=== PATIENT | male | born 1945 | race Caucasian/White ===

== ENCOUNTER → 2019-07-18 | Outpatient (CLI) | payer OTHER | END | disposition home or self-care (01) | LOC: SHCH 08:40 | PROVIDERS: ATTEND Internal Medicine Cardiovascular Disease | DX: I51.7 Cardiomegaly (principal); I34.0 Nonrheumatic mitral (valve) insufficiency; E66.9 Obesity, unspecified; I50.20 Unspecified systolic (congestive) heart failure | CPT/HCPCS: 93306 ==

== ENCOUNTER → 2019-08-23 | Outpatient (CLI) | payer OTHER ==
[~2019-08-23] VITALS: Ht 175.3 cm; Wt 149.2 kg
[~2019-08-23] MED LIST: REGADENOSON 0.4 MG/5 ML PF SYG IVP SCH
== END | disposition home or self-care (01) ==
LOC: SHCH 08:00
PROVIDERS: ATTEND Internal Medicine Cardiovascular Disease
DX: I21.19 ST elevation (STEMI) myocardial infarction involving other coronary artery of inferior wall (principal); I25.10 Atherosclerotic heart disease of native coronary artery without angina pectoris
CPT/HCPCS: 78452; 93017; 96374; A9500 ×2; J2785

== ENCOUNTER → 2020-02-19 | Outpatient (CLI) | payer OTHER ==
[~2020-02-19] VITALS: Ht 175.3 cm; Wt 149.2 kg
[~2020-02-19] MED LIST changes: +ACET-66 PO; +ADV500 IH; +AEC81 PO; +ALBU90AE2 IH; +BUSP15TA3 PO; +CIPOTIC OTIC; +CITA-107 PO; +CLOT15CR23 TP; +COLE625 PO; +DOXY100T2 PO; +FLUT16H NASAL; +FOLI0.4T2 PO; +FURO80TA3 PO; +ISOS60TA4 PO; +LACT10SO62 PO; +LEVO50TA11 PO; +LORA-192 PO; +LOSA25TA41 PO; +METO-409 PO; +NITR0.4T SL; +RANO10003 PO; -REGADENOSON 0.4 MG/5 ML PF SYG IVP SCH; +SIMV-46 PO; +SODIUM CHLORIDE 0.9% 500ML 500 ML IV SCH; +SPIR25TA6 PO; +TAMS-1 PO; +TRAZ-187 PO; +VENL100T4 PO
[2020-02-19 09:48] LABS: EOSINOPHILS % (AUTO) 0.5 % (0.0-8.0); HEMATOCRIT 30.8 % (42-54); LYMPHOCYTES % (AUTO) 22.2 % (21.0-51.0); MEAN CORPUSCULAR HEMOGLOBIN 27.4 pg (27.0-33.0); MEAN CORPUSCULAR HGB CONC 31.5 g/dL (32.0-36.0); MONOCYTES % (AUTO) 11.6 % (3.0-13.0); NEUTROPHILS % (AUTO) 65.5 % (40.0-77.0); PLATELET COUNT (AUTO) 98 K/uL (130-400); RED BLOOD CELL COUNT(AUTO) 3.54 MIL/uL (4.50-6.20); RED CELL DISTRIBUTION WIDTH 14.2 % (11.0-15.5); WHITE BLOOD COUNT (AUTO) 4.1 K/uL (4.8-10.8)
[2020-02-19 09:52] LABS: APPEARANCE,URINE Cloudy (CLEAR); BILIRUBIN,URINE Negative (NEGATIVE); COLOR,URINE Yellow (YELLOW); GLUCOSE, URINE (UA) Negative (NEGATIVE); KETONES,URINE Negative (NEGATIVE); LEUKOCYTE ESTERASE ,URINE Large (NEGATIVE); NITRATE,URINE Negative (NEGATIVE); OCCULT BLOOD,URINE Negative (NEGATIVE); PROTEIN,URINE Trace mg/dL (NEGATIVE)
[2020-02-19 09:54] LABS: CREATININE 1.1 mg/dL (0.5-1.5); POTASSIUM 4.2 mmol/L (3.5-5.1)
[2020-02-19 09:57] LABS: INR 1.08 (0.85-1.15); PARTIAL THROMBOPLASTIN TIME 28.4 SEC (26.3-35.5); PROTHROMBIN TIME 11.6 SEC (9.6-11.6)
[2020-02-19 10:21] LABS: BACTERIA,URINE None Seen /HPF (None Seen); RBC,URINE 0-1 /HPF (0-1)
[2020-02-19 10:22] LABS: SQUAMOUS EPITHELIAL CELL,UR 0-2 /HPF (0-2)
[2020-02-19 13:22] VITALS: BP 137/57
--- NOTE | 2020-02-20 14:29 | NUR ---
RE: ABNORMAL LABS REPORTED URINALYSIS RESULTS TO [facility] SPANGLER. ALSO REPORTED WBC 4.1, HGB 9.7, HCT 30.8, PLT 98. NO NEW ORDERS. MAY PROCEED WITH PROCEDURE SCHEDULED.
--- NOTE | 2020-02-21 06:08 | NUR ---
PT CALLED TO CANCEL HIS PROCEDURE. INSTRUCTED TO CALL [facility] TO LET THEM KNOW. I WILL FOLLOW UP WITH DR PALOMARES AND HIS CLINIC
--- NOTE | 2020-02-21 06:20 | NUR ---
I CALLED PT TO VERIFY HIS CANCELLATION- HE CANCELLED DUE TO "LACK OF SLEEP". I INSTRUCTED HIM TO CALL THE HEART CLINIC TO RESCHEDULE. THANK YOU
== END ==
LOC: LAB 05:00 → EDSTATUS 09:00
PROVIDERS: ATTEND Internal Medicine Cardiovascular Disease
DX: Z01.818 Encounter for other preprocedural examination (principal); I25.119 Atherosclerotic heart disease of native coronary artery with unspecified angina pectoris; E78.5 Hyperlipidemia, unspecified; J44.9 Chronic obstructive pulmonary disease, unspecified; K21.9 Gastro-esophageal reflux disease without esophagitis; N18.2 Chronic kidney disease, stage 2 (mild); I12.9 Hypertensive chronic kidney disease with stage 1 through stage 4 chronic kidney disease, or unspecified chronic kidney disease; Z79.899 Other long term (current) drug therapy; Z98.890 Other specified postprocedural states; Z79.01 Long term (current) use of anticoagulants
CPT/HCPCS: 36415; 71045; 80048; 81001; 85025; 85610; 85730; 87088; 93005

== ENCOUNTER 2020-04-09 16:21 | Inpatient (IN) | payer OTHER ==
[~2020-04-09] VITALS: Ht 175.3 cm; Wt 142.8 kg
[~2020-04-09 16:21] MED LIST changes: -ACET-66 PO; -ALBU90AE2 IH; -BUSP15TA3 PO; -CIPOTIC OTIC; -FOLI0.4T2 PO; -FURO80TA3 PO; -SODIUM CHLORIDE 0.9% 500ML 500 ML IV SCH
[2020-04-09 17:11] LABS: HEMATOCRIT 28.4 % (42-54); LYMPHOCYTES % (AUTO) 17.1 % (21.0-51.0); MEAN CORPUSCULAR HEMOGLOBIN 27.7 pg (27.0-33.0); MEAN CORPUSCULAR VOLUME 86.3 fL (79-99); MONOCYTES % (AUTO) 10.4 % (3.0-13.0); NEUTROPHILS % (AUTO) 72.3 % (40.0-77.0); PLATELET COUNT (AUTO) 103 K/uL (130-400); RED BLOOD CELL COUNT(AUTO) 3.29 MIL/uL (4.50-6.20); RED CELL DISTRIBUTION WIDTH 13.9 % (11.0-15.5)
[2020-04-09 17:25] LABS: INR 1.08 (0.85-1.15); PARTIAL THROMBOPLASTIN TIME 28.9 SEC (26.3-35.5); PROTHROMBIN TIME 11.6 SEC (9.6-11.6)
[2020-04-09 17:27] LABS: CARBON DIOXIDE 29 mmol/L (21-32); CHLORIDE 96 mmol/L (101-111); CREATININE 1.2 mg/dL (0.5-1.5); GLOMERULAR FILTR. RATE CALC 63 mL/min (>60); GLUCOSE,RANDOM 93 mg/dL (70-105); POTASSIUM 4.7 mmol/L (3.5-5.1); SODIUM SERUM 132 mmol/L (136-145); UREA NITROGEN, BLOOD 23 mg/dL (7-18)
[2020-04-09 17:52] LABS: ALANINE AMINOTRANSFERASE 25 U/L (12-78); ALBUMIN 3.4 g/dL (3.5-5.0); ASPARTATE AMINOTRANSFERASE 19 U/L (10-37); BILIRUBIN,TOTAL 0.4 mg/dL (0.2-1.0); CREATINE KINASE, TOTAL 56 U/L (21-232); MYOGLOBIN 60 ng/mL (10-92); TOTAL PROTEIN, SERUM 7.2 g/dL (6.0-8.3); TROPONIN I < 0.04 ng/mL (0.00-0.06)
[2020-04-09] MEDS ORDERED: CEFTRIAXONE SODIUM 2 GM VIAL ONE (18:19)
[2020-04-09] MEDS ORDERED: SODIUM CHLORIDE 0.9% 500ML 500 ML IV ONE (19:24)
[2020-04-09] MEDS ORDERED: SODIUM CHLORIDE 0.9% 100 ML IV ONE (20:24)
[2020-04-10 04:07] LABS: EOSINOPHILS % (AUTO) 0.2 % (0.0-8.0); HEMATOCRIT 29.8 % (42-54); LYMPHOCYTES % (AUTO) 17.6 % (21.0-51.0); MEAN CORPUSCULAR HEMOGLOBIN 28.1 pg (27.0-33.0); MEAN CORPUSCULAR HGB CONC 32.2 g/dL (32.0-36.0); MEAN CORPUSCULAR VOLUME 87.1 fL (79-99); NEUTROPHILS % (AUTO) 72.7 % (40.0-77.0); PLATELET COUNT (AUTO) 100 K/uL (130-400); RED BLOOD CELL COUNT(AUTO) 3.42 MIL/uL (4.50-6.20); RED CELL DISTRIBUTION WIDTH 13.9 % (11.0-15.5); WHITE BLOOD COUNT (AUTO) 4.2 K/uL (4.8-10.8)
[2020-04-10] MEDS: OCTREOTIDE ACETATE 500 MCG in SODIUM CHLORIDE 0.9% 97.5 ML IV SCH ×2 (04:15→14:15)
[2020-04-10] MEDS: PANTOPRAZOLE SODIUM 80 MG in NS 100ML IVP SCH ×2 (04:15→16:31)
[2020-04-10 04:32] LABS: CREATININE 1.3 mg/dL (0.5-1.5)
[2020-04-10 04:36] LABS: ALBUMIN 3.4 g/dL (3.5-5.0); BILIRUBIN,TOTAL 0.4 mg/dL (0.2-1.0); TOTAL PROTEIN, SERUM 7.2 g/dL (6.0-8.3)
[2020-04-10] MEDS ORDERED: GUAIFENESIN-DM 200/20 MG 10 ML ONE (04:54)
[2020-04-10] MEDS ORDERED: TRAMADOL HCL 50 MG TABLET ONE (04:55)
[2020-04-10] MEDS ORDERED: BENZOCAINE/MENTH/CETYLPYRD CL 1 EACH LOZENGE MM ONE (04:55)
[2020-04-10] MEDS ORDERED: GUAIFENESIN-CODEINE 5 ML SYRUP PO PRN (05:30)
[2020-04-10] MEDS: LEVOTHYROXINE 100 MCG TABLET PO SCH (06:30)
[2020-04-10] MEDS: ISOSORBIDE MONO 30MG TAB SR PO SCH (09:00)
[2020-04-10] MEDS: BUSPIRONE HCL 5 MG TABLET PO SCH ×2 (09:00→20:37)
[2020-04-10] MEDS: LOSARTAN 50 MG TABLET PO SCH (09:00)
[2020-04-10] MEDS: RANOLAZINE 500 MG TAB.SR.12H PO SCH ×2 (09:00→20:37)
[2020-04-10] MEDS: FOLIC ACID 1 MG TABLET PO SCH (09:00)
[2020-04-10] MEDS: ALBUTEROL INHALER 90MCG/INH IH SCH ×4 (10:00→22:09)
[2020-04-10] MEDS ORDERED: ISOSORBIDE MONO 30MG TAB SR PO ONE (10:01)
[2020-04-10 11:31] LABS: HEMATOCRIT 29.9 % (42-54)
--- NOTE | 2020-04-10 15:25 | NUR ---
ER ADMIT PATIENT RECEIVED FROM ER VIA STRETCHER IN STABLE CONDITION. HE HAS BEEN ORIENTED TO ROOM AND USE OF CALL LIGHT. BED IS IN LOWEST POSITION AND LOCKED. WILL CONTINUE TO MONITOR.
[2020-04-10 15:54] VITALS: BP 130/70
--- NOTE | 2020-04-10 16:00 | NUR ---
Patient's physical assessment completed. No Shortness of breath observed, however patient is on oxygen at 2 LPM via nasal cannula. Patient is a COPD patient and is always on oxygen. Lungs sounds diminished to bilateral lower lobes. Stated he has been having sore throat but he believes is from the chronic use of oxygen. Reported that he uses the CPAP at all times when he needs it. Currently he is on Sandostatin drip and Protonix drip for diagnosis of GI bleed via 20g saline lock to left antecubital area. Alexandr LEVINE is patient's primary care nurse
[2020-04-10] MEDS ORDERED: FURO80TA3 PO (16:17)
[2020-04-10] MEDS ORDERED: FOLI0.4T2 PO (16:25)
[2020-04-10] MEDS ORDERED: ALBU90AE2 IH (16:25)
[2020-04-10] MEDS ORDERED: BUSP15TA3 PO (16:25)
[2020-04-10] MEDS ORDERED: ACET-66 PO (16:29)
[2020-04-10 18:14] LABS: HEMATOCRIT 28.9 % (42-54)
[2020-04-10 19:00] VITALS: BP 115/59
[2020-04-10] MEDS: METRONIDAZOLE 500MG/100ML BAG 100 ML IV SCH (22:09)
[2020-04-10 23:00] VITALS: BP 127/54
[2020-04-11] MEDS: TRAMADOL HCL 50 MG TABLET PO PRN ×2 (00:34→05:38)
[2020-04-11] MEDS: OCTREOTIDE ACETATE 500 MCG in SODIUM CHLORIDE 0.9% 97.5 ML IV SCH ×2 (00:35→12:48)
[2020-04-11] MEDS: PANTOPRAZOLE SODIUM 80 MG in NS 100ML IVP SCH ×2 (00:35→12:48)
[2020-04-11] MEDS: ALBUTEROL INHALER 90MCG/INH IH SCH ×5 (02:00→21:19)
[2020-04-11 03:00] VITALS: BP 139/80
[2020-04-11] MEDS: BENZOCAINE/MENTH/CETYLPYRD CL 1 EACH LOZENGE MM PRN (03:56)
[2020-04-11] MEDS: METRONIDAZOLE 500MG/100ML BAG 100 ML IV SCH ×3 (05:09→21:18)
[2020-04-11] MEDS: LEVOTHYROXINE 100 MCG TABLET PO SCH (05:51)
[2020-04-11 08:30] VITALS: BP 132/55
[2020-04-11] MEDS: FOLIC ACID 1 MG TABLET PO SCH (09:51)
[2020-04-11] MEDS: ISOSORBIDE MONO 30MG TAB SR PO SCH (09:51)
[2020-04-11] MEDS: LOSARTAN 50 MG TABLET PO SCH (09:52)
[2020-04-11] MEDS: RANOLAZINE 500 MG TAB.SR.12H PO SCH ×2 (09:52→21:19)
[2020-04-11] MEDS: BUSPIRONE HCL 5 MG TABLET PO SCH ×2 (09:54→21:19)
[2020-04-11] MEDS ORDERED: COMPOUND IV REFRIGERATED 1 EACH IVSOLN MISC PRN (12:15)
--- NOTE | 2020-04-11 15:24 | NUR ---
DC PLAN CALLED PATIENT ROOM NO ANSWER. FACE SHEET IS A FRIEND NOT DIRECT FAMILY. JADON WILL CONTINUE TO FOLLOW. Addendum: 04/11/20 at 1525 by EVIN SEPULVEDA RN CM Amended: Links added.
[2020-04-11 16:00] VITALS: BP 119/62
[2020-04-11] MEDS: FUROSEMIDE 80 MG TABLET PO SCH (17:01)
[2020-04-11] MEDS ORDERED: NON-FORMULARY MEDICATION 1 EACH (Buspirone HCl 15 MG) PO SCH (21:00)
[2020-04-11] MEDS ORDERED: NON-FORMULARY MEDICATION 1 EACH (Ranolazine (Ranexa) 1,000 MG) PO SCH (21:00)
[2020-04-11] MEDS ORDERED: VENLAFAXINE HCL 100 MG PO SCH (21:00)
[2020-04-11] MEDS: VENLAFAXINE HCL 50 MG TABLET PO SCH (21:18)
[2020-04-11] MEDS: COLESEVELAM HCL 625 MG TAB PO SCH (21:18)
[2020-04-11] MEDS: TRAZODONE HCL 100 MG TABLET PO SCH (21:18)
[2020-04-11] MEDS: PANTOPRAZOLE SODIUM 40 MG TABLET.DR PO SCH (21:19)
[2020-04-11] MEDS: CLOTRIMAZOLE 30 GM CREAM.GM. TP SCH (21:19)
[2020-04-11 21:46] VITALS: BP 128/60
[2020-04-12 00:28] VITALS: BP 151/69
[2020-04-12] MEDS: ALBUTEROL INHALER 90MCG/INH IH SCH ×7 (01:22→22:50)
[2020-04-12 04:38] VITALS: BP 114/56
[2020-04-12] MEDS: LEVOTHYROXINE 100 MCG TABLET PO SCH (06:13)
[2020-04-12] MEDS: METRONIDAZOLE 500MG/100ML BAG 100 ML IV SCH ×3 (06:13→21:34)
[2020-04-12 06:27] LABS: HEMATOCRIT 27.9 % (42-54); MEAN CORPUSCULAR HEMOGLOBIN 27.9 pg (27.0-33.0); MEAN CORPUSCULAR HGB CONC 31.9 g/dL (32.0-36.0); MEAN CORPUSCULAR VOLUME 87.5 fL (79-99); RED BLOOD CELL COUNT(AUTO) 3.19 MIL/uL (4.50-6.20); WHITE BLOOD COUNT (AUTO) 4.4 K/uL (4.8-10.8)
[2020-04-12 06:59] LABS: CREATININE 1.1 mg/dL (0.5-1.5); POTASSIUM 4.4 mmol/L (3.5-5.1)
[2020-04-12 08:00] VITALS: BP 114/51
[2020-04-12] MEDS ORDERED: NON-FORMULARY MEDICATION 1 EACH (Simvastatin 40 MG) PO SCH (09:00)
[2020-04-12] MEDS ORDERED: NON-FORMULARY MEDICATION 1 EACH (Folic Acid 1 MG) PO SCH (09:00)
[2020-04-12] MEDS ORDERED: NON-FORMULARY MEDICATION 1 EACH (Metoprolol Succinate 100 MG) PO SCH (09:00)
[2020-04-12] MEDS ORDERED: NON-FORMULARY MEDICATION 1 EACH (Losartan Potassium 25 MG) PO SCH (09:00)
[2020-04-12] MEDS: RANOLAZINE 500 MG TAB.SR.12H PO SCH ×2 (10:04→21:31)
[2020-04-12] MEDS: ISOSORBIDE MONO 30MG TAB SR PO SCH (10:05)
[2020-04-12] MEDS: METOPROLOL SUCCINATE 50 MG TAB.SR.24H PO SCH (10:05)
[2020-04-12] MEDS: LOSARTAN 50 MG TABLET PO SCH (10:05)
[2020-04-12] MEDS: FOLIC ACID 1 MG TABLET PO SCH (10:05)
[2020-04-12] MEDS: PANTOPRAZOLE SODIUM 40 MG TABLET.DR PO SCH ×2 (10:05→21:32)
[2020-04-12] MEDS: BUSPIRONE HCL 5 MG TABLET PO SCH ×2 (10:05→21:31)
[2020-04-12] MEDS: ASPIRIN 81 MG EC TAB PO SCH (10:05)
[2020-04-12] MEDS: FUROSEMIDE 80 MG TABLET PO SCH ×2 (10:05→17:36)
[2020-04-12] MEDS: SPIRONOLACTONE 25 MG TAB PO SCH (10:05)
[2020-04-12] MEDS: SIMVASTATIN 20 MG TABLET PO SCH (10:06)
[2020-04-12] MEDS: COLESEVELAM HCL 625 MG TAB PO SCH ×2 (10:06→21:31)
[2020-04-12] MEDS: VENLAFAXINE HCL 50 MG TABLET PO SCH ×2 (10:06→21:31)
[2020-04-12] MEDS: CLOTRIMAZOLE 30 GM CREAM.GM. TP SCH ×2 (10:06→21:32)
[2020-04-12 11:21] VITALS: BP 103/44
[2020-04-12] MEDS ORDERED: LACTULOSE 20 GM/30 ML UDCUP PO PRN (15:30)
[2020-04-12 15:58] VITALS: BP 98/44
[2020-04-12 21:14] VITALS: BP 102/45
[2020-04-12] MEDS: TRAZODONE HCL 100 MG TABLET PO SCH (21:31)
[2020-04-12] MEDS: TRAMADOL HCL 50 MG TABLET PO PRN (21:32)
[2020-04-13 00:17] VITALS: BP 148/47
[2020-04-13 04:04] VITALS: BP 109/62
[2020-04-13] MEDS: ALBUTEROL INHALER 90MCG/INH IH SCH ×5 (05:48→20:54)
[2020-04-13] MEDS: METRONIDAZOLE 500MG/100ML BAG 100 ML IV SCH ×3 (05:48→20:54)
[2020-04-13] MEDS: LEVOTHYROXINE 100 MCG TABLET PO SCH (05:48)
[2020-04-13 06:18] LABS: HEMATOCRIT 28.4 % (42-54); LYMPHOCYTES % (AUTO) 18.4 % (21.0-51.0); MEAN CORPUSCULAR HEMOGLOBIN 27.3 pg (27.0-33.0); MEAN CORPUSCULAR VOLUME 85.3 fL (79-99); MONOCYTES % (AUTO) 12.4 % (3.0-13.0); NEUTROPHILS % (AUTO) 68.8 % (40.0-77.0); PLATELET COUNT (AUTO) 114 K/uL (130-400); RED BLOOD CELL COUNT(AUTO) 3.33 MIL/uL (4.50-6.20); RED CELL DISTRIBUTION WIDTH 13.7 % (11.0-15.5); WHITE BLOOD COUNT (AUTO) 5.5 K/uL (4.8-10.8)
[2020-04-13 06:29] LABS: B-TYPE NATRIURETIC PEPTIDE 134 pg/mL (0-100)
[2020-04-13 06:49] LABS: CARBON DIOXIDE 32 mmol/L (21-32); CHLORIDE 101 mmol/L (101-111); CREATININE 1.2 mg/dL (0.5-1.5); GLOMERULAR FILTR. RATE CALC 63 mL/min (>60); GLUCOSE,RANDOM 95 mg/dL (70-105); POTASSIUM 4.2 mmol/L (3.5-5.1); SODIUM SERUM 140 mmol/L (136-145); UREA NITROGEN, BLOOD 21 mg/dL (7-18)
[2020-04-13 08:00] VITALS: BP 153/63
[2020-04-13] MEDS: METOPROLOL SUCCINATE 50 MG TAB.SR.24H PO SCH (09:00)
[2020-04-13] MEDS: PANTOPRAZOLE SODIUM 40 MG TABLET.DR PO SCH ×2 (09:03→20:54)
[2020-04-13] MEDS: ISOSORBIDE MONO 30MG TAB SR PO SCH (09:03)
[2020-04-13] MEDS: COLESEVELAM HCL 625 MG TAB PO SCH ×2 (09:04→20:54)
[2020-04-13] MEDS: FOLIC ACID 1 MG TABLET PO SCH (09:04)
[2020-04-13] MEDS: BUSPIRONE HCL 5 MG TABLET PO SCH ×2 (09:04→20:54)
[2020-04-13] MEDS: PREDNISONE 20 MG TABLET PO SCH (09:04)
[2020-04-13] MEDS: ASPIRIN 81 MG EC TAB PO SCH (09:05)
[2020-04-13] MEDS: LOSARTAN 50 MG TABLET PO SCH (09:05)
[2020-04-13] MEDS: FUROSEMIDE 80 MG TABLET PO SCH ×2 (09:05→16:35)
[2020-04-13] MEDS: CLOTRIMAZOLE 30 GM CREAM.GM. TP SCH ×2 (09:06→20:54)
[2020-04-13] MEDS: RANOLAZINE 500 MG TAB.SR.12H PO SCH ×2 (09:08→20:54)
[2020-04-13] MEDS: VENLAFAXINE HCL 50 MG TABLET PO SCH ×2 (09:08→20:53)
[2020-04-13] MEDS: SIMVASTATIN 20 MG TABLET PO SCH (09:08)
[2020-04-13] MEDS: SPIRONOLACTONE 25 MG TAB PO SCH (09:09)
[2020-04-13 12:00] VITALS: BP 112/66
--- NOTE | 2020-04-13 12:25 | NUR ---
INITIAL SW spoke to patient's provider/friend, Erlinda Polanco, [phone]. Patient lives alone. He has no home health but does have PHC with [facility] 49 hours a week. DME: BPM, w/c, O2 concentrator/portable, CPAP and nebulizer. Patient needs help with ADL's and does not drive. PCP is Dr. Kelsey Schaffer. Pharmacy is [facility] located on [address]. DCP is home. Provider/friend, Erlinda Polanco, informed SW that PT at home with home health would be more beneficial for patient. MD will be notified. Addendum: 04/13/20 at 1228 by LIO WALDROP Amended: Links added.
[2020-04-13 16:00] VITALS: BP 128/66
[2020-04-13] MEDS ORDERED: MAGNESIUM 2GM PREMIX 50ML 50 ML IV SCH (17:00)
[2020-04-13 20:00] VITALS: BP 137/60
[2020-04-13] MEDS: TRAZODONE HCL 100 MG TABLET PO SCH (20:54)
[2020-04-13] MEDS: BENZOCAINE/MENTH/CETYLPYRD CL 1 EACH LOZENGE MM PRN (21:45)
[2020-04-13] MEDS: TRAMADOL HCL 50 MG TABLET PO PRN (21:46)
[2020-04-14] VITALS: BP 129/53
[2020-04-14] MEDS: ALBUTEROL INHALER 90MCG/INH IH SCH ×6 (01:43→22:00)
[2020-04-14 04:10] VITALS: BP 126/52
[2020-04-14] MEDS: LEVOTHYROXINE 100 MCG TABLET PO SCH (05:14)
[2020-04-14] MEDS: METRONIDAZOLE 500MG/100ML BAG 100 ML IV SCH (05:14)
[2020-04-14 06:22] LABS: CREATININE 1.1 mg/dL (0.5-1.5); MAGNESIUM 1.9 mg/dL (1.80-2.40)
[2020-04-14 07:57] VITALS: BP 120/54
[2020-04-14] MEDS: COLESEVELAM HCL 625 MG TAB PO SCH ×2 (08:51→21:48)
[2020-04-14] MEDS: LOSARTAN 50 MG TABLET PO SCH (08:51)
[2020-04-14] MEDS: FUROSEMIDE 80 MG TABLET PO SCH ×2 (08:51→16:31)
[2020-04-14] MEDS: FOLIC ACID 1 MG TABLET PO SCH (08:51)
[2020-04-14] MEDS: VENLAFAXINE HCL 50 MG TABLET PO SCH ×2 (08:51→21:49)
[2020-04-14] MEDS: ASPIRIN 81 MG EC TAB PO SCH (08:52)
[2020-04-14] MEDS: SPIRONOLACTONE 25 MG TAB PO SCH (08:52)
[2020-04-14] MEDS: RANOLAZINE 500 MG TAB.SR.12H PO SCH ×2 (08:52→21:49)
[2020-04-14] MEDS: SIMVASTATIN 20 MG TABLET PO SCH (08:52)
[2020-04-14] MEDS: PANTOPRAZOLE SODIUM 40 MG TABLET.DR PO SCH ×2 (08:52→21:49)
[2020-04-14] MEDS: METOPROLOL SUCCINATE 50 MG TAB.SR.24H PO SCH (08:52)
[2020-04-14] MEDS: BUSPIRONE HCL 5 MG TABLET PO SCH ×2 (08:52→21:49)
[2020-04-14] MEDS: ISOSORBIDE MONO 30MG TAB SR PO SCH (08:53)
[2020-04-14] MEDS: PREDNISONE 20 MG TABLET PO SCH (08:54)
[2020-04-14] MEDS: CLOTRIMAZOLE 30 GM CREAM.GM. TP SCH ×2 (09:06→21:00)
[2020-04-14 11:33] VITALS: BP 116/53
--- NOTE | 2020-04-14 14:00 | NUR ---
transfer REPORT GIVEN TO TITO, 3RD FLOOR NURSE, AND PATIENT TRANSFERRED TO ROOM 332. NO COMPLAINTS NOTED FROM PATIENT.
--- NOTE | 2020-04-14 14:08 | NUR ---
TRANSFER FROM 4TH PATIENT RECEIVED FROM 4TH FLOOR VIA HOSPITAL BED IN STABLE CONDITION. HE HAS BEEN ORIENTED TO ROOM AND USE OF CALL LIGHT. BED IS IN LOWEST POSITION AND LOCKED. WILL CONTINUE TO MONITOR.
[2020-04-14 16:38] VITALS: BP 146/72
[2020-04-14] MEDS: CIPROFLOXACIN HCL 0.2%/HYDROCORT 1% 10 ML OTIC SUSP OTIC SCH ×2 (18:12→21:50)
[2020-04-14 20:05] VITALS: BP 118/66
[2020-04-14] MEDS: TRAZODONE HCL 100 MG TABLET PO SCH (21:49)
[2020-04-14] MEDS: DOCUSATE SODIUM 100 MG CAP PO SCH (21:49)
[2020-04-15 00:06] VITALS: BP 135/53
[2020-04-15] MEDS: TRAMADOL HCL 50 MG TABLET PO PRN (00:50)
[2020-04-15] MEDS: ALBUTEROL INHALER 90MCG/INH IH SCH ×4 (02:23→13:14)
[2020-04-15 04:01] VITALS: BP 114/48
[2020-04-15 05:09] LABS: BASOPHILS % (AUTO) 0.2 % (0.0-5.0); EOSINOPHILS % (AUTO) 0.2 % (0.0-8.0); HEMATOCRIT 28.6 % (42-54); LYMPHOCYTES % (AUTO) 13.4 % (21.0-51.0); MEAN CORPUSCULAR HEMOGLOBIN 27.8 pg (27.0-33.0); MEAN CORPUSCULAR HGB CONC 32.5 g/dL (32.0-36.0); MEAN CORPUSCULAR VOLUME 85.4 fL (79-99); MONOCYTES % (AUTO) 8.6 % (3.0-13.0); NEUTROPHILS % (AUTO) 77.1 % (40.0-77.0); PLATELET COUNT (AUTO) 128 K/uL (130-400); RED BLOOD CELL COUNT(AUTO) 3.35 MIL/uL (4.50-6.20); RED CELL DISTRIBUTION WIDTH 13.9 % (11.0-15.5); WHITE BLOOD COUNT (AUTO) 6.5 K/uL (4.8-10.8)
[2020-04-15 05:35] LABS: CREATININE 1.2 mg/dL (0.5-1.5); POTASSIUM 3.9 mmol/L (3.5-5.1)
[2020-04-15] MEDS: LEVOTHYROXINE 100 MCG TABLET PO SCH (07:17)
[2020-04-15] MEDS: CIPROFLOXACIN HCL 0.2%/HYDROCORT 1% 10 ML OTIC SUSP OTIC SCH ×2 (08:06→13:13)
[2020-04-15] MEDS: FUROSEMIDE 80 MG TABLET PO SCH (08:06)
[2020-04-15] MEDS: METOPROLOL SUCCINATE 50 MG TAB.SR.24H PO SCH (08:06)
[2020-04-15] MEDS: FOLIC ACID 1 MG TABLET PO SCH (08:07)
[2020-04-15] MEDS: SPIRONOLACTONE 25 MG TAB PO SCH (08:07)
[2020-04-15] MEDS: ASPIRIN 81 MG EC TAB PO SCH (08:07)
[2020-04-15] MEDS: LOSARTAN 50 MG TABLET PO SCH (08:07)
[2020-04-15] MEDS: DOCUSATE SODIUM 100 MG CAP PO SCH (08:07)
[2020-04-15] MEDS: PANTOPRAZOLE SODIUM 40 MG TABLET.DR PO SCH (08:07)
[2020-04-15] MEDS: PREDNISONE 20 MG TABLET PO SCH (08:07)
[2020-04-15] MEDS: SIMVASTATIN 20 MG TABLET PO SCH (08:08)
[2020-04-15] MEDS: ISOSORBIDE MONO 30MG TAB SR PO SCH (08:08)
[2020-04-15] MEDS: BUSPIRONE HCL 5 MG TABLET PO SCH (08:08)
[2020-04-15] MEDS: RANOLAZINE 500 MG TAB.SR.12H PO SCH (08:10)
[2020-04-15 08:15] VITALS: BP 127/62
[2020-04-15] MEDS: CLOTRIMAZOLE 30 GM CREAM.GM. TP SCH (09:17)
[2020-04-15] MEDS: COLESEVELAM HCL 625 MG TAB PO SCH (09:17)
[2020-04-15] MEDS: VENLAFAXINE HCL 50 MG TABLET PO SCH (09:17)
[2020-04-15 11:07] VITALS: BP 128/57
[2020-04-15] MEDS ORDERED: CIPOTIC OTIC (14:20)
--- NOTE | 2020-04-15 14:58 | NUR ---
INSTRUCTIONS DISCHARGE INSTRUCTIONS GIVEN TO PATIENT USING TEACH BACK. NEW PRESCRIPTION SENT ELECTRONICALLY TO PATIENT'S PREFERRED PHARMACY. F/U APPOINTMENT WITH [facility] HAS BEEN MADE. PATIENT IS TO GO TO PRIMARY MD TOMORROW TO SET UP HOME HEALTH SERVICES. NO QUESTIONS OR CONCERNS VOICED.
--- NOTE | 2020-04-15 15:59 | NUR ---
APPT WITH ARIADNE TYLER TOMORROW AT 0830 INFORMATION SENT TO [facility]/ HOME CARE DIMENS[facility] FOR HH Addendum: 04/15/20 at 1600 by EUGENIE SARAVIA RN CM Amended: Links added.
== END 2020-04-15 15:35 | disposition home health service (06) | DRG 291 ==
LOC: EDH 16:21 → OBSVTOIN 19:30 → EDHIP 19:30 → 2DH 04-10 15:12 → 4CH 04-11 09:21 → 3AH 04-14 14:16
PROVIDERS: ADMIT Internal Medicine Critical Care Medicine; ATTEND Internal Medicine Critical Care Medicine
PROC: 5A09357 Assistance with Respiratory Ventilation, Less than 24 Consecutive Hours, Continuous Positive Airway Pressure (ICD-10-PCS; principal; 2020-04-10)
PROC: 5A09357 Assistance with Respiratory Ventilation, Less than 24 Consecutive Hours, Continuous Positive Airway Pressure (ICD-10-PCS; 2020-04-11)
PROC: 5A09357 Assistance with Respiratory Ventilation, Less than 24 Consecutive Hours, Continuous Positive Airway Pressure (ICD-10-PCS; 2020-04-12)
PROC: 5A09357 Assistance with Respiratory Ventilation, Less than 24 Consecutive Hours, Continuous Positive Airway Pressure (ICD-10-PCS; 2020-04-13)
PROC: 5A09357 Assistance with Respiratory Ventilation, Less than 24 Consecutive Hours, Continuous Positive Airway Pressure (ICD-10-PCS; 2020-04-14)
PROC: 5A09357 Assistance with Respiratory Ventilation, Less than 24 Consecutive Hours, Continuous Positive Airway Pressure (ICD-10-PCS; 2020-04-15)
DX: I13.0 Hypertensive heart and chronic kidney disease with heart failure and stage 1 through stage 4 chronic kidney disease, or unspecified chronic kidney disease (principal); I50.33 Acute on chronic diastolic (congestive) heart failure; J96.21 Acute and chronic respiratory failure with hypoxia; J44.1 Chronic obstructive pulmonary disease with (acute) exacerbation; Z68.42 Body mass index [BMI] 45.0-49.9, adult; Z95.1 Presence of aortocoronary bypass graft; I25.10 Atherosclerotic heart disease of native coronary artery without angina pectoris; N18.2 Chronic kidney disease, stage 2 (mild); Z99.81 Dependence on supplemental oxygen; K21.9 Gastro-esophageal reflux disease without esophagitis; G47.33 Obstructive sleep apnea (adult) (pediatric); H60.502 Unspecified acute noninfective otitis externa, left ear; G47.00 Insomnia, unspecified; Z20.828 Contact with and (suspected) exposure to other viral communicable diseases; E66.9 Obesity, unspecified; E78.5 Hyperlipidemia, unspecified; K59.00 Constipation, unspecified; Z79.82 Long term (current) use of aspirin; Z79.899 Other long term (current) drug therapy
CPT/HCPCS: 36415; 71045; 74176; 80048; 80053; 82550; 83605; 83735; 83874; 83880; 84145; 84484; 85014; 85018; 85025; 85027; 85378; 85610; 85730; 87040; 87426; 93005; 93306; 93356; 94660; 97039; C9113; G0378; J0696; J2354; J3475; J3490; J7040; U0003

== ENCOUNTER 2020-05-13 06:00 | Day surgery (SDC) | payer OTHER ==
[~2020-05-13] VITALS: Ht 175.3 cm; Wt 138.3 kg
[~2020-05-13 06:00] MED LIST changes: +ACET-66 PO; +ALBU90AE2 IH; +BUSP15TA3 PO; +CIPOTIC OTIC; -DOXY100T2 PO; +FOLI0.4T2 PO; +FURO80TA3 PO; -LACT10SO62 PO; -SIMV-46 PO
[2020-05-13 06:59] VITALS: BP 136/57
[2020-05-13] MEDS ORDERED: SODIUM CHLORIDE 0.9% 1000ML 1,000 ML IV ONE (07:14)
[2020-05-13] MEDS ORDERED: LIDOCAINE HCL 2% 20ML ONE (07:53)
[2020-05-13] MEDS ORDERED: PROPOFOL 10 MG/ML 20ML VIAL IV ONE (07:53)
[2020-05-13] MEDS ORDERED: GLYCOPYRROLATE 0.2 MG/ML 5 ML VIAL ONE (08:00)
[2020-05-13 08:21] VITALS: BP 102/57
[2020-05-13 08:26] VITALS: BP 112/58
[2020-05-13 08:30] VITALS: BP 152/66
[2020-05-13 08:45] VITALS: BP 167/65
== END 2020-05-13 08:55 | disposition home or self-care (01) ==
LOC: ENDO 06:00 → DAH 06:00 → ENDO 08:55
PROVIDERS: ATTEND Internal Medicine Gastroenterology
DX: D64.9 Anemia, unspecified (principal); K63.5 Polyp of colon; K57.30 Diverticulosis of large intestine without perforation or abscess without bleeding; K64.2 Third degree hemorrhoids; E03.9 Hypothyroidism, unspecified; E78.5 Hyperlipidemia, unspecified; F32.9 Major depressive disorder, single episode, unspecified; Z20.828 Contact with and (suspected) exposure to other viral communicable diseases; J44.9 Chronic obstructive pulmonary disease, unspecified; I10 Essential (primary) hypertension; I25.10 Atherosclerotic heart disease of native coronary artery without angina pectoris; Z95.1 Presence of aortocoronary bypass graft
CPT/HCPCS: 45385; 93005; A4215; A4221; A4222; A4223; A4606; A4620; A4663; C9803; J2704; J3490 ×2; J7030; U0003

== ENCOUNTER → 2022-11-01 | Outpatient (CLI) | payer OTHER, MEDICARE ==
[~2022-11-01] MED LIST changes: -COLE625 PO; +COLE625T30 PO; -FOLI0.4T2 PO; +FOLI0.4T6 PO; -ISOS60TA4 PO; +ISOS60TA77 PO
[2022-11-01 12:59] LABS: HEMATOCRIT 31.5 % (42-54); LYMPHOCYTES % (AUTO) 20.4 % (21.0-51.0); MEAN CORPUSCULAR HEMOGLOBIN 29.4 pg (27.0-33.0); MEAN CORPUSCULAR HGB CONC 32.4 g/dL (32.0-36.0); MEAN CORPUSCULAR VOLUME 90.8 fL (79-99); MONOCYTES % (AUTO) 8.8 % (3.0-13.0); NEUTROPHILS % (AUTO) 70.5 % (40.0-77.0); PLATELET COUNT (AUTO) 158 K/uL (130-400); RED BLOOD CELL COUNT(AUTO) 3.47 MIL/uL (4.50-6.20); WHITE BLOOD COUNT (AUTO) 3.7 K/uL (4.8-10.8)
[2022-11-01 13:06] LABS: INR 1.03 (0.85-1.15); PROTHROMBIN TIME 11.2 SEC (9.6-11.6)
[2022-11-01 13:07] LABS: PARTIAL THROMBOPLASTIN TIME 27.7 SEC (26.3-35.5)
[2022-11-01 13:46] LABS: CREATININE 1.1 mg/dL (0.5-1.5); POTASSIUM 3.9 mmol/L (3.5-5.1); THYROID STIMULATING HORMONE 1.37 uIU/mL (0.36-3.74)
== END | disposition home or self-care (01) ==
LOC: LAB 10:52
PROVIDERS: ATTEND Internal Medicine Cardiovascular Disease
DX: I25.10 Atherosclerotic heart disease of native coronary artery without angina pectoris (principal); I10 Essential (primary) hypertension; Z86.2 Personal history of diseases of the blood and blood-forming organs and certain disorders involving the immune mechanism
CPT/HCPCS: 36415; 80048; 84443; 85025; 85610; 85730